=== PATIENT | male | born 1980 | race Caucasian/White ===

== ENCOUNTER 2018-11-01 12:19 | Emergency (ER) | payer MEDICAID, SELFPAY ==
[2018-11-01 12:19] VITALS: BP 110/70; PULSE 93; RESP 16; TEMP 36.7; O2SAT 98; BMI 19.0
--- NOTE | 2018-11-01 12:31 | RAD_ITS ---
STUDY: X-RAY - RIGHT HAND REASON FOR EXAM: Male, 38 years old. History of a dog bite. TECHNIQUE: 3 view(s) of the hand. COMPARISON: None. FINDINGS: Normal radiocarpal articulation. Normal distal radioulnar joint. Normal visualized carpal bones. Normal carpal articulations Normal carpometacarpal articulation of the thumb. Normal second through fifth carpometacarpal joints. Normal metacarpi. Normal metacarpophalangeal joint of the thumb. Normal interphalangeal joint of the thumb. Normal proximal and distal phalanges of the thumb. Normal metacarpophalangeal joints of the second through fifth fingers. Normal proximal and distal interphalangeal joints of the second through fifth fingers. Normal phalanges of the second through fifth fingers. The soft tissue structures are unremarkable. No radiopaque foreign body is seen. RAD/Hand Min 3 Views IMPRESSION: Normal x-ray examination of the hand. Electronically Signed: Moi Phillips, at 12:58 EDT , Service support ,
--- NOTE | 2018-11-01 12:45 | ED.VISSUMM ---
- ER Visit Summary Date of Service: 11/01/18 Chief Complaint: Dog bite History of Present Illness: The patient is a 38 M with no primary care physician. He reports that his own dog bit his right hand last night. This was approximately 16 hours ago. His dog's immunizations are up-to-date. The patient last had a tetanus shot 4 years ago. He reports he has a sharp pain 7-10 at worst 5-10 currently. Is worsened by movement relieved by rest. Denies any paresthesias distally. No fever, chills, nausea, or vomiting. Physical Examination: Vitals: Stable. Afebrile. General: Well-nourished and well-developed. Head: Normocephalic atraumatic. Neck: Supple, no lymphadenopathy. No JVD. Nontender. Cardiovascular: Regular rate and rhythm. No murmurs. Respiratory: No respiratory distress. Clear to auscultation bilaterally. Abdominal: Soft, nontender, nondistended, normal bowel sounds. No guarding, rebound, or peritoneal signs. Back: Nontender. Extremities: There are three 1 cm puncture wounds on the dorsum of his right hand over the third and fourth distal metacarpals. There is a 3 cm laceration on the dorsal surface of his hand over the middle finger PIP joint. There is contusion and soft tissue swelling around these. However, there is no erythema or induration. He is able to extend his third and fourth fingers against resistance at the MCP, PIP, and DIP joints. He has normal sensation to light touch distally.. Skin: Normal color, no rash. Neurologic: Alert and oriented ?3. Cranial nerves II through XII are intact. Normal strength and sensation. Psych: Normal affect. Test Results: X-ray shows no fracture or foreign body. Emergency Department Course and Treatment: Patient had his wound cleansed and a dressing was placed. He was treated with naproxen, [place], and Augmentin. Treatment Plan: Patient will be discharged instructed to follow-up Dr. Lazcano in 2 days for a wound check. He will be discharged on [place], naproxen, on Augmentin. Return to the emergency department for any worsening symptoms. Disposition: To home in improved and stable condition. Impression: 1. Dog bite right hand. This note was generated with [employer] software. It may contain incorrect words, spelling, and punctuation that were not noted in review of the chart prior to signing ED Disposition - Plan for ED Patient: Disposition: Home or Assisted Living Instructions: ED Bite Dog Prescriptions: Hydrocodone Bitart/Apap 5-325 [[place] 5MG-325MG] 1 tablet PO Q6H PRN PRN 3 Days #10 tablet PRN Reason: Pain Amox/Clavulanate Tablet [Augmentin Tablet] 875 mg PO Q12H #14 tablet Naproxen [Naprosyn] 500 mg PO BID #14 tablet Referrals: Venus Lazcano DO [STAFF PHYSICIAN] - 2 Days for wound check
[2018-11-01] MEDS: HYDROcodone Bitartrate/Apap 5/325 Tablet PO (12:50)
[2018-11-01] MEDS: Amox/Clavulanate 875 MG Tablet PO (12:51)
[2018-11-01] MEDS: Naproxen 500 MG Tablet PO (12:51)
== END 2018-11-01 13:23 | disposition home or self-care (01) ==
LOC: ED 13:00
PROVIDERS: Emergency Provider Emergency Medicine
DX: S61.451A Open bite of right hand, initial encounter (principal); Z72.0 Tobacco use; W54.0XXA Bitten by dog, initial encounter; Y93.89 Activity, other specified; Y92.009 Unspecified place in unspecified non-institutional (private) residence as the place of occurrence of the external cause; Y99.8 Other external cause status
CPT/HCPCS: 73130; 99284